=== PATIENT | female | born 1945 | race Caucasian/White ===

== ENCOUNTER → 2023-09-22 13:38 | Outpatient (CLI) | payer MEDICARE, OTHER, SELFPAY ==
--- NOTE | 2023-09-22 13:42 | DI.RAD.S_ITS ---
PROCEDURE: XR LUMBAR SPINE MIN 4V INDICATIONS: low back pain TECHNIQUE: 5 views of the lumbar spine were acquired, including bilateral oblique views. COMPARISON: Outside Facility, RG, XR L-SPINE 4-6V, 09/05/2023, 10:56. Outside Facility, RG, XR L-SPINE 2-3V, 09/01/2021, 15:30. FINDINGS: Bones: 5 nonrib-bearing vertebrae are present. There is normal bony alignment. Small vertebral body osteophytes. Lower lumbar spine facet joint hypertrophy. Multilevel loss of disc space height. No vertebral body compression fractures. No suspicious bony lesions. Moderate bilateral hip DJD. Soft tissues: Overlying bowel gas pattern is normal. No suspicious soft tissue calcifications. Cholecystectomy clips. Oblique images: No pars defects. IMPRESSION: No compression fracture. Dictated by: Antonio Cabello M.D. on 09/22/2023 at 14:21 Approved by: Antonio Cabello M.D. on 09/22/2023 at 14:24
== END ==
PROVIDERS: PCP Family Medicine; Referring Provider Anesthesiology; Visit Provider Anesthesiology
DX: M47.816 Spondylosis without myelopathy or radiculopathy, lumbar region (principal); M16.0 Bilateral primary osteoarthritis of hip; M54.50 Low back pain, unspecified
CPT/HCPCS: 72110

== ENCOUNTER → 2023-09-26 15:56 | Outpatient (CLI) | payer MEDICARE, OTHER, SELFPAY ==
--- NOTE | 2023-09-26 15:57 | DI.MRI.S_ITS ---
PROCEDURE: MR LUMBAR SPINE WO CON INDICATIONS: Chronic low back pain, neurogenic claudication TECHNIQUE: Noncontrast sagittal T1 spin echo and T2 fast echo, sagittal STIR, and T2 fast spin echo through the lumbar spine. In cases with scoliosis, additional coronal T2 fast spin echo may be performed. COMPARISON: [facility], CR, XR LUMBAR SPINE MIN 4V, 09/22/2023, 13:42. FINDINGS: Image quality: Excellent. Alignment and Curvature: There is normal bony alignment. Bone Marrow: Marrow is of normal overall signal. No acute vertebral body compression fractures. Spinal Cord: Conus medullaris terminates at the L1 level. Visualized cord demonstrates normal signal and size. Paraspinous Soft Tissues: No paravertebral masses. T12-L1: Mild disc height loss. Left greater than right facet hypertrophy. L1-L2: Broad-based disc bulge. Facet hypertrophy, ligamentum flavum hypertrophy and facet effusions causing severe spinal canal narrowing. L2-L3: Broad-based disc bulge, ligamentum flavum hypertrophy, facet hypertrophy, left facet effusion. Severe spinal canal narrowing. Mild bilateral neural foraminal narrowing. L3-L4: Broad-based disc bulge, moderate spinal canal narrowing, mild bilateral neural foraminal narrowing. Ligamentum flavum hypertrophy and epidural lipomatosis with facet hypertrophy. L4-L5: Broad-based disc bulge, ligamentum flavum hypertrophy, facet hypertrophy, left facet effusion, epidural lipomatosis. Mild spinal canal narrowing and mild bilateral neural foraminal narrowing. L5-S1: Severe disc height loss, facet hypertrophy. Moderate right and mild left neural foraminal narrowing. IMPRESSION: Multilevel degenerative disc disease and facet arthrosis. Of note: Up to severe spinal canal narrowing at L2-3, L1-2. Up to moderate neural foraminal narrowing, located at the right side of L5-S1. Dictated by: Chalo Garcia M.D. on 09/27/2023 at 9:19 Approved by: Chalo Garcia M.D. on 09/27/2023 at 9:24
== END ==
PROVIDERS: PCP Family Medicine; Referring Provider Anesthesiology; Visit Provider Anesthesiology
DX: M51.16 Intervertebral disc disorders with radiculopathy, lumbar region (principal); M47.26 Other spondylosis with radiculopathy, lumbar region; M47.27 Other spondylosis with radiculopathy, lumbosacral region; M48.061 Spinal stenosis, lumbar region without neurogenic claudication; M48.07 Spinal stenosis, lumbosacral region; M54.50 Low back pain, unspecified; R29.818 Other symptoms and signs involving the nervous system
CPT/HCPCS: 72148

== ENCOUNTER 2023-11-22 12:08 | Outpatient (CLI) | payer MEDICARE, OTHER, SELFPAY ==
[2023-11-22] VITALS (9 sets, daily range): BP systolic 123–202; BP diastolic 69–85; PULSE 67–75; RESP 15–22; TEMP 36.3; O2SAT 91–96
--- NOTE | 2023-11-22 13:00 | DI.RAD.S_ITS ---
PROCEDURE: PAIN L INTERLAMINAR/CAUDAL INJ INDICATIONS: radiculopathy COMPARISON: None. FINDINGS: Fluoroscopic spot filming was performed to verify placement of spinal needles at the right L2-L3 level(s), as labeled on the films. Appropriate location(s) of the needle tip(s) was confirmed by injection of iodinated contrast. IMPRESSION: Intraoperative fluoroscopic image of right L2-L3 epidural needle placement with contrast injection. Please see separately dictated procedure report for full details. Approved by: Rita Javed M.D.,Ph.D. on 11/23/2023 at 21:20
[2023-11-22] MEDS: MIDAZOLAM 2 MG/2 ML VIAL 1 MG IV (13:09)
[2023-11-22] MEDS: DEXAMETHASONE 10 MG/ML VIAL INJ (13:13)
[2023-11-22] MEDS: iopamidoL 15 ML VIAL 3 ML INJ (13:13)
--- NOTE | 2023-11-22 16:40 | P.PCN_ITS ---
Date/Time/Diagnoses Date of procedure: 11/22/23 Time of procedure: 13:00 Procedure Notes Physician: Jesús Dumont Total Fluoroscopy time (seconds): 12 Total sedation minutes: 8 Procedure in detail & Post-procedure care: L2-3 Interlaminar Epidural Steroid Injection Indications: Shanice is presenting for treatment of lumbar radiculopathy with low back and leg pain. Preoperative diagnosis: Lumbar radiculopathy Postoperative diagnosis: Same Focused Examination: Ax3 Mood and affect are normal Vital Signs: VSS ASA: 2 Consent: Following review of allergies and potential side effects/complications, including, but not necessarily limited to, infection, allergic reaction, local tissue breakdown, stroke, temporary or permanent nerve injury, paralysis, and possible , the patient indicated that they understood and agreed to proce ed.? An informed consent document was signed by the patient, witnessed by a nurse and placed in the patient's chart.? Additionally, other treatment options including medications and physical therapy were reviewed with the patient. All questions were answered. Site was then marked. Anesthesia: After review of previous anesthetic history and IV conscious sedation, the patient was deemed safe to proceed with today's procedure with IV conscious sedation. IV sedation was accomplished with midazolam 1 mg administered by the RN after order by Dr. Dumont. Sedation was titrated to patient comfort during the course of the procedure. Patient remained responsive to all verbal commands. Position: Prone Monitoring: NIBP, Pulse oximetry, 3 lead EKG Needle used: 18 G 3.5? Tuohy Contrast: Isovue 300M Injectate: Dexamethasone 10 mg with 1% lidocaine 2 mL Technique: The skin was prepped with chloraprep and then draped in a sterile fashion. Time out was performed as per protocol. Oxygen applied via NC. Skin and subcutaneous structures of the needle entry site was then infiltrated with 3 mL of lidocaine 1%. Under AP, lateral and contralateral oblique fluoroscopic control, the Tuohy needle was guided into the L2-3 epidural space. The space was accessed with loss of resistance technique. Isovue 300M was then injected and the spread was consistent with the epidural space. There was no evidence for intravascular or intrathecal uptake. After negative aspiration, the above- mentioned injectate was then slowly administered and the needle withdrawn. The patient expressed no unusual discomfort or paresthesias during the injection. Band-Aids applied to injection sites. EBL: less than 1 ml Complications: None Post Procedure: Patient was taken to the recovery and monitored. The patient was provided a Pain Log to continue to record the patient's response to the target- specific procedure prior to the patient's follow-up visit with the referring physician. Patient was stable upon discharge. Detailed post procedure instructions were provided. Patient was asked to call in the event of worsening pain, fever, weakness, numbness or bladder or bowel incontinence.
== END 2023-11-22 13:42 | disposition home or self-care (01) ==
LOC: RAD 12:10
PROVIDERS: PCP Family Medicine; Referring Provider Anesthesiology; Visit Provider Anesthesiology
DX: M54.16 Radiculopathy, lumbar region (principal)
CPT/HCPCS: 62323; J1100; J2250